=== PATIENT | male | born 1955 | race American Indian/Alaskan Native ===

== ENCOUNTER 2020-11-13 21:34 | Observation (INO) | payer MEDICARE, OTHER ==
[2020-11-13] MEDS ORDERED: ZIPRASIDONE MESYLATE 20 MG VIAL IM ONE (22:04)
--- NOTE | 2020-11-13 22:07 | Emergency Department Report ---
ED Altered Mental Status HPI - General Chief Complaint: Altered Mental Status Stated Complaint: AMS PUI?: No Time Seen by Provider: 11/13/20 21:56 Source: EMS Mode of arrival: Wheelchair Limitations: Altered Mental Status - History of Present Illness Initial Comments: Patient is a 65-year-old male who presents emergency room for altered mental status. Patient brought in by EMS. EMS states the patient is alert and oriented x1. EMS states possibility of EtOH. Patient is agitated. Patient oriented x1. EMS states the patient was wandering around and called 911 because he did not feel right. EMS found the patient wandering in a parking lot. MD Complaint: confusion, other (Agitation) -: Sudden Severity: severe Consistency of Symptoms: constant - Related Data Home Medications Medication Instructions Recorded Confirmed Last Taken Unobtainable 11/14/20 11/14/20 Unknown Allergies Allergy/AdvReac Type Severity Reaction Status Date / Time Unable to Assess Allergy Unverified 11/13/20 22:02 ED Review of Systems ROS: Stated complaint: AMS Other details as noted in HPI Comment: Unobtainable due to pts medical conditions ED Past Medical Hx - Past Medical History Previous Medical History?: No Additional medical history: unknown - Surgical History Past Surgical History?: No Additional Surgical History: unknown - Family History Family history: no significant - Social History Smoking Status: Unknown if ever smoked Substance Use Type: Alcohol - Medications Home Medications: Home Medications Medication Instructions Recorded Confirmed Last Taken Type Unobtainable 11/14/20 11/14/20 Unknown History ED Physical Exam - General Limitations: Altered Mental Status General appearance: alert, in no apparent distress - Head Head exam: Present: atraumatic, normocephalic - Eye Eye exam: Present: normal appearance, PERRL Pupils: Present: normal accommodation - ENT ENT exam: Present: mucous membranes moist - Neck Neck exam: Present: normal inspection - Respiratory Respiratory exam: Present: normal lung sounds bilaterally. Absent: respiratory distress, wheezes, rales - Cardiovascular Cardiovascular Exam: Present: regular rate, normal rhythm. Absent: systolic murmur, diastolic murmur, rubs, gallop - GI/Abdominal GI/Abdominal exam: Present: soft, normal bowel sounds. Absent: distended, tenderness, guarding - Rectal Rectal exam: Present: deferred, prostate tenderness, prostate enlargement - Extremities Exam Extremities exam: Present: normal inspection - Back Exam Back exam: Present: normal inspection - Neurological Exam Neurological exam: Present: alert, altered - Psychiatric Psychiatric exam: Present: agitated - Skin Skin exam: Present: warm, dry, intact, normal color. Absent: rash - Assessment Assessment Interval: Baseline - Level of Consciousness 1a. Level of Consciousness: alert/keenly responsive - LOC Questions 1b. LOC Questions: answers 1 question correctly - LOC Command 1c. LOC Commands: performs tasks correctly - Best Gaze 2. Best Gaze: normal - Visual 3. Visual: no visual loss - Facial Palsy 4. Facial Palsy: normal symmetrical movement - Motor Arm 5a. Motor Arm Left: no drift 5b. Motor Arm Right: no drift - Motor Leg 6a. Motor Leg Left: no drift 6b. Motor Leg Right: no drift - Limb Ataxia 7. Limb Ataxia: absent - Sensory 8. Sensory: normal - Best Language 9. Best Language: no aphasia - Dysarthria 10. Dysarthria: normal - Extinction and Inattention 11. Extinction/Inattention: no abnormality - Scoring Total Score: 1 Stroke Severity: Minor Stroke ED Course Vital Signs 11/13/20 11/13/20 11/13/20 22:06 22:11 22:15 Pulse Rate 89 90 Respiratory 18 15 10 L Rate Blood Pressure 128/68 O2 Sat by Pulse 68 L 96 Oximetry 11/13/20 11/13/20 11/13/20 22:30 22:45 23:00 Pulse Rate 108 H 108 H 96 H Respiratory 15 17 16 Rate Blood Pressure 124/75 134/66 119/57 O2 Sat by Pulse 97 93 96 Oximetry 11/13/20 11/13/20 11/13/20 23:15 23:30 23:45 Pulse Rate 90 96 H 93 H Respiratory 11 L 21 17 Rate Blood Pressure 138/80 144/91 154/85 O2 Sat by Pulse 98 98 Oximetry 11/14/20 11/14/20 11/14/20 00:09 00:15 00:31 Pulse Rate Respiratory Rate Blood Pressure 154/85 154/85 154/85 O2 Sat by Pulse 96 95 92 Oximetry 11/14/20 11/14/20 11/14/20 00:45 01:00 01:15 Pulse Rate 114 H 108 H 100 H Respiratory 14 15 17 Rate Blood Pressure 163/92 156/107 166/96 O2 Sat by Pulse 99 98 100 Oximetry 11/14/20 11/14/2011/14/21 01:30 01:45 02:00 Pulse Rate 118 H 102 H 109 H Respiratory 25 H 13 17 Rate Blood Pressure 170/91 170/86 158/90 O2 Sat by Pulse 88 100 98 Oximetry 11/14/20 11/14/20 11/14/20 02:15 02:31 02:45 Pulse Rate 97 H 102 H 102 H Respiratory 16 22 21 Rate Blood Pressure 162/92 152/95 171/119 O2 Sat by Pulse 100 97 Oximetry 11/14/20 11/14/20 11/14/20 03:00 03:15 03:30 Pulse Rate 91 H 91 H 100 H Respiratory 15 18 19 Rate Blood Pressure 161/85 148/78 160/91 O2 Sat by Pulse 99 95 97 Oximetry 11/14/20 11/14/20 11/14/20 03:45 04:00 04:15 Pulse Rate 98 H 92 H 92 H Respiratory 17 16 13 Rate Blood Pressure 151/84 150/80 153/90 O2 Sat by Pulse 98 99 98 Oximetry 11/14/20 04:30 Pulse Rate 90 Respiratory 15 Rate Blood Pressure 158/87 O2 Sat by Pulse 100 Oximetry - Reevaluation(s) Reevaluation #1: Patient became agitated. Patient given Geodon. 11/13/20 22:07 Reevaluation #2: Patient having restlessness and agitation still. Patient will be given Ativan. 11/13/20 23:07 Reevaluation #3: Patient resting comfortably. Patient will have CT scan done. 11/14/20 00:33 Reevaluation #4: I discussed all results with patient. I discussed plan of care with patient. Patient agrees with plan of care and admission. Patient to be admitted to the hospitalist service. 11/14/20 03:33 - Consultations Consultation #1: Hospitalist consulted for admission. Hospitalist to admit patient. 11/14/20 03:33 - Lab Data Result diagrams: 11/13/20 22:29 11/13/20 22:29 Lab Results 11/13/20 11/13/20 11/13/20 Range/Units 22:29 22:29 22:29 WBC 5.4 (4.5-11.0) K/mm3 RBC 3.23 L (3.65-5.03) M/mm3 Hgb 12.0 (11.8-15.2) gm/dl Hct 34.6 L (35.5-45.6) % MCV 107 H (84-94) fl MCH 37 H (28-32) pg MCHC 35 H (32-34) % RDW 14.4 (13.2-15.2) % Plt Count 77 L (140-440) K/mm3 Lymph % (Auto) Technical Support Analyst Add Manual Diff Complete Total Counted 100 Seg Neutrophils % Technical Support Analyst Seg Neuts % (Manual) 21.0 L (40.0-70.0) % Band Neutrophils % 3.0 % Lymphocytes % (Manual) 62.0 H (13.4-35.0) % Reactive Lymphs % (Man) 1.0 % Monocytes % (Manual) 12.0 H (0.0-7.3) % Basophils % (Manual) 1.0 (0.0-1.8) % Nucleated RBC % Not Reportable Seg Neutrophils # Man 1.1 L (1.8-7.7) K/mm3 Band Neutrophils # 0.2 K/mm3 Lymphocytes # (Manual) 3.3 (1.2-5.4) K/mm3 Abs React Lymphs (Man) 0.1 K/mm3 Monocytes # (Manual) 0.6 (0.0-0.8) K/mm3 Eosinophils # (Manual) 0.0 (0.0-0.4) K/mm3 Basophils # (Manual) 0.1 (0.0-0.1) K/mm3 Metamyelocytes # 0.0 K/mm3 Myelocytes # 0.0 K/mm3 Promyelocytes # 0.0 K/mm3 Blast Cells # 0.0 K/mm3 WBC Morphology Not Reportable Hypersegmented Neuts Not Reportable Hyposegmented Neuts Not Reportable Hypogranular Neuts Not Reportable Smudge Cells Not Reportable Toxic Granulation Not Reportable Toxic Vacuolation Not Reportable Dohle Bodies Not Reportable Pelger-Huet Anomaly Not Reportable Jay Rods Not Reportable Platelet Estimate Consistent w auto Clumped Platelets Not Reportable Plt Clumps, EDTA Not Reportable Large Platelets Not Reportable Giant Platelets Not Reportable Platelet Satelliting Not Reportable Plt Morphology Comment Not Reportable RBC Morphology Not Reportable Dimorphic RBCs Not Reportable Polychromasia Not Reportable Hypochromasia Not Reportable Poikilocytosis Not Reportable Anisocytosis 1+ Microcytosis Not Reportable Macrocytosis 1+ Spherocytes Not Reportable Pappenheimer Bodies Not Reportable Sickle Cells Not Reportable Target Cells Not Reportable Tear Drop Cells Not Reportable Ovalocytes Not Reportable Helmet Cells Not Reportable [place] Bodies Not Reportable [place] Rings Not Reportable Jordi Cells Not Reportable Bite Cells Not Reportable Crenated Cell Not Reportable Elliptocytes Not Reportable Acanthocytes (Spur) Not Reportable Rouleaux Not Reportable Hemoglobin C Crystals Not Reportable Schistocytes Not Reportable Malaria parasites Not Reportable Evangelista Bodies Not Reportable Hem Pathologist Commnt No Sodium 141 (137-145) mmol/L Potassium 3.9 (3.6-5.0) mmol/L Chloride 103.9 (98-107) mmol/L Carbon Dioxide 24 (22-30) mmol/L Anion Gap 17 mmol/L BUN 6 L (9-20) mg/dL Creatinine 0.7 L (0.8-1.3) mg/dL Estimated GFR > 60 ml/min BUN/Creatinine Ratio 9 % Glucose 107 H (75-100) mg/dL Lactic Acid 2.40 H* (0.7-2.0) mmol/L Calcium 8.5 (8.4-10.2) mg/dL Total Bilirubin 1.80 H (0.1-1.2) mg/dL AST 82 H (5-40) units/L ALT 25 (7-56) units/L Alkaline Phosphatase 180 H (35-129) units/L Ammonia (25-60) umol/L Total Creatine Kinase (55-170) units/L Troponin T (0.00-0.029) ng/mL Total Protein 7.3 (6.3-8.2) g/dL Albumin 3.6 L (3.9-5) g/dL Albumin/Globulin Ratio 1.0 % Urine Color (Yellow) Urine Turbidity (Clear) Urine pH (5.0-7.0) Ur Specific [place] (1.003-1.030) Urine Protein (Negative) mg/dL Urine Glucose (UA) (Negative) mg/dL Urine Ketones (Negative) mg/dL Urine Blood (Negative) Urine Nitrite (Negative) Urine Bilirubin (Negative) Urine Urobilinogen (<2.0) mg/dL Ur Leukocyte Esterase (Negative) Urine WBC (Auto) (0.0-6.0) /HPF Urine RBC (Auto) (0.0-6.0) /HPF Salicylates (2.8-20.0) mg/dL Urine Opiates Screen Urine Methadone Screen Acetaminophen (10.0-30.0) ug/mL Ur Barbiturates Screen Ur Phencyclidine Scrn Ur Amphetamines Screen U Benzodiazepines Scrn Urine Cocaine Screen U Marijuana (THC) Screen Drugs of Abuse Note Plasma/Serum Alcohol (0-0.07) % 11/13/20 11/13/20 11/13/20 Range/Units 22:29 22:29 22:29 WBC (4.5-11.0) K/mm3 RBC (3.65-5.03) M/mm3 Hgb (11.8-15.2) gm/dl Hct (35.5-45.6) % MCV (84-94) fl MCH (28-32) pg MCHC (32-34) % RDW (13.2-15.2) % Plt Count (140-440) K/mm3 Lymph % (Auto) Add Manual Diff Total Counted Seg Neutrophils % Seg Neuts % (Manual) (40.0-70.0) % Band Neutrophils % % Lymphocytes % (Manual) (13.4-35.0) % Reactive Lymphs % (Man) % Monocytes % (Manual) (0.0-7.3) % Basophils % (Manual) (0.0-1.8) % Nucleated RBC % Seg Neutrophils # Man (1.8-7.7) K/mm3 Band Neutrophils # K/mm3 Lymphocytes # (Manual) (1.2-5.4) K/mm3 Abs React Lymphs (Man) K/mm3 Monocytes # (Manual) (0.0-0.8) K/mm3 Eosinophils # (Manual) (0.0-0.4) K/mm3 Basophils # (Manual) (0.0-0.1) K/mm3 Metamyelocytes # K/mm3 Myelocytes # K/mm3 Promyelocytes # K/mm3 Blast Cells # K/mm3 WBC Morphology Hypersegmented Neuts Hyposegmented Neuts Hypogranular Neuts Smudge Cells Toxic Granulation Toxic Vacuolation Dohle Bodies Pelger-Huet Anomaly Jay Rods Platelet Estimate Clumped Platelets Plt Clumps, EDTA Large Platelets Giant Platelets Platelet Satelliting Plt Morphology Comment RBC Morphology Dimorphic RBCs Polychromasia Hypochromasia Poikilocytosis Anisocytosis Microcytosis Macrocytosis Spherocytes Pappenheimer Bodies Sickle Cells Target Cells Tear Drop Cells Ovalocytes Helmet Cells [place] Bodies [place] Rings Jordi Cells Bite Cells Crenated Cell Elliptocytes Acanthocytes (Spur) Rouleaux Hemoglobin C Crystals Schistocytes Malaria parasites Evangelista Bodies Hem Pathologist Commnt Sodium (137-145) mmol/L Potassium (3.6-5.0) mmol/L Chloride (98-107) mmol/L Carbon Dioxide (22-30) mmol/L Anion Gap mmol/L BUN (9-20) mg/dL Creatinine (0.8-1.3) mg/dL Estimated GFR ml/min BUN/Creatinine Ratio % Glucose (75-100) mg/dL Lactic Acid (0.7-2.0) mmol/L Calcium (8.4-10.2) mg/dL Total Bilirubin (0.1-1.2) mg/dL AST (5-40) units/L ALT (7-56) units/L Alkaline Phosphatase (35-129) units/L Ammonia 36.0 (25-60) umol/L Total Creatine Kinase 147 (55-170) units/L Troponin T (0.00-0.029) ng/mL Total Protein (6.3-8.2) g/dL Albumin (3.9-5) g/dL Albumin/Globulin Ratio % Urine Color (Yellow) Urine Turbidity (Clear) Urine pH (5.0-7.0) Ur Specific [place] (1.003-1.030) Urine Protein (Negative) mg/dL Urine Glucose (UA) (Negative) mg/dL Urine Ketones (Negative) mg/dL Urine Blood (Negative) Urine Nitrite (Negative) Urine Bilirubin (Negative) Urine Urobilinogen (<2.0) mg/dL Ur Leukocyte Esterase (Negative) Urine WBC (Auto) (0.0-6.0) /HPF Urine RBC (Auto) (0.0-6.0) /HPF Salicylates < 0.3 L (2.8-20.0) mg/dL Urine Opiates Screen Urine Methadone Screen Acetaminophen (10.0-30.0) ug/mL Ur Barbiturates Screen Ur Phencyclidine Scrn Ur Amphetamines Screen U Benzodiazepines Scrn Urine Cocaine Screen U Marijuana (THC) Screen Drugs of Abuse Note Plasma/Serum Alcohol (0-0.07) % 11/13/20 11/13/20 11/13/20 Range/Units 22:29 22:29 22:29 WBC (4.5-11.0) K/mm3 RBC (3.65-5.03) M/mm3 Hgb (11.8-15.2) gm/dl Hct (35.5-45.6) % MCV (84-94) fl MCH (28-32) pg MCHC (32-34) % RDW (13.2-15.2) % Plt Count (140-440) K/mm3 Lymph % (Auto) Add Manual Diff Total Counted Seg Neutrophils % Seg Neuts % (Manual) (40.0-70.0) % Band Neutrophils % % Lymphocytes % (Manual) (13.4-35.0) % Reactive Lymphs % (Man) % Monocytes % (Manual) (0.0-7.3) % Basophils % (Manual) (0.0-1.8) % Nucleated RBC % Seg Neutrophils # Man (1.8-7.7) K/mm3 Band Neutrophils # K/mm3 Lymphocytes # (Manual) (1.2-5.4) K/mm3 Abs React Lymphs (Man) K/mm3 Monocytes # (Manual) (0.0-0.8) K/mm3 Eosinophils # (Manual) (0.0-0.4) K/mm3 Basophils # (Manual) (0.0-0.1) K/mm3 Metamyelocytes # K/mm3 Myelocytes # K/mm3 Promyelocytes # K/mm3 Blast Cells # K/mm3 WBC Morphology Hypersegmented Neuts Hyposegmented Neuts Hypogranular Neuts Smudge Cells Toxic Granulation Toxic Vacuolation Dohle Bodies Pelger-Huet Anomaly Jay Rods Platelet Estimate Clumped Platelets Plt Clumps, EDTA Large Platelets Giant Platelets Platelet Satelliting Plt Morphology Comment RBC Morphology Dimorphic RBCs Polychromasia Hypochromasia Poikilocytosis Anisocytosis Microcytosis Macrocytosis Spherocytes Pappenheimer Bodies Sickle Cells Target Cells Tear Drop Cells Ovalocytes Helmet Cells [place] Bodies [place] Rings Jordi Cells Bite Cells Crenated Cell Elliptocytes Acanthocytes (Spur) Rouleaux Hemoglobin C Crystals Schistocytes Malaria parasites Evangelista Bodies Hem Pathologist Commnt Sodium (137-145) mmol/L Potassium (3.6-5.0) mmol/L Chloride (98-107) mmol/L Carbon Dioxide (22-30) mmol/L Anion Gap mmol/L BUN (9-20) mg/dL Creatinine (0.8-1.3) mg/dL Estimated GFR ml/min BUN/Creatinine Ratio % Glucose (75-100) mg/dL Lactic Acid (0.7-2.0) mmol/L Calcium (8.4-10.2) mg/dL Total Bilirubin (0.1-1.2) mg/dL AST (5-40) units/L ALT (7-56) units/L Alkaline Phosphatase (35-129) units/L Ammonia (25-60) umol/L Total Creatine Kinase (55-170) units/L Troponin T < 0.010 (0.00-0.029) ng/mL Total Protein (6.3-8.2) g/dL Albumin (3.9-5) g/dL Albumin/Globulin Ratio % Urine Color (Yellow) Urine Turbidity (Clear) Urine pH (5.0-7.0) Ur Specific [place] (1.003-1.030) Urine Protein (Negative) mg/dL Urine Glucose (UA) (Negative) mg/dL Urine Ketones (Negative) mg/dL Urine Blood (Negative) Urine Nitrite (Negative) Urine Bilirubin (Negative) Urine Urobilinogen (<2.0) mg/dL Ur Leukocyte Esterase (Negative) Urine WBC (Auto) (0.0-6.0) /HPF Urine RBC (Auto) (0.0-6.0) /HPF Salicylates (2.8-20.0) mg/dL Urine Opiates Screen Urine Methadone Screen Acetaminophen 5.0 L (10.0-30.0) ug/mL Ur Barbiturates Screen Ur Phencyclidine Scrn Ur Amphetamines Screen U Benzodiazepines Scrn Urine Cocaine Screen U Marijuana (THC) Screen Drugs of Abuse Note Plasma/Serum Alcohol 0.30 H (0-0.07) % 11/14/20 11/14/20 11/14/20 Range/Units 00:24 01:30 02:48 WBC (4.5-11.0) K/mm3 RBC (3.65-5.03) M/mm3 Hgb (11.8-15.2) gm/dl Hct (35.5-45.6) % MCV (84-94) fl MCH (28-32) pg MCHC (32-34) % RDW (13.2-15.2) % Plt Count (140-440) K/mm3 Lymph % (Auto) Add Manual Diff Total Counted Seg Neutrophils % Seg Neuts % (Manual) (40.0-70.0) % Band Neutrophils % % Lymphocytes % (Manual) (13.4-35.0) % Reactive Lymphs % (Man) % Monocytes % (Manual) (0.0-7.3) % Basophils % (Manual) (0.0-1.8) % Nucleated RBC % Seg Neutrophils # Man (1.8-7.7) K/mm3 Band Neutrophils # K/mm3 Lymphocytes # (Manual) (1.2-5.4) K/mm3 Abs React Lymphs (Man) K/mm3 Monocytes # (Manual) (0.0-0.8) K/mm3 Eosinophils # (Manual) (0.0-0.4) K/mm3 Basophils # (Manual) (0.0-0.1) K/mm3 Metamyelocytes # K/mm3 Myelocytes # K/mm3 Promyelocytes # K/mm3 Blast Cells # K/mm3 WBC Morphology Hypersegmented Neuts Hyposegmented Neuts Hypogranular Neuts Smudge Cells Toxic Granulation Toxic Vacuolation Dohle Bodies Pelger-Huet Anomaly Jay Rods Platelet Estimate Clumped Platelets Plt Clumps, EDTA Large Platelets Giant Platelets Platelet Satelliting Plt Morphology Comment RBC Morphology Dimorphic RBCs Polychromasia Hypochromasia Poikilocytosis Anisocytosis Microcytosis Macrocytosis Spherocytes Pappenheimer Bodies Sickle Cells Target Cells Tear Drop Cells Ovalocytes Helmet Cells [place] Bodies [place] Rings Jordi Cells Bite Cells Crenated Cell Elliptocytes Acanthocytes (Spur) Rouleaux Hemoglobin C Crystals Schistocytes Malaria parasites Evangelista Bodies Hem Pathologist Commnt Sodium (137-145) mmol/L Potassium (3.6-5.0) mmol/L Chloride (98-107) mmol/L Carbon Dioxide (22-30) mmol/L Anion Gap mmol/L BUN (9-20) mg/dL Creatinine (0.8-1.3) mg/dL Estimated GFR ml/min BUN/Creatinine Ratio % Glucose (75-100) mg/dL Lactic Acid 2.40 H* 2.10 H* (0.7-2.0) mmol/L Calcium (8.4-10.2) mg/dL Total Bilirubin (0.1-1.2) mg/dL AST (5-40) units/L ALT (7-56) units/L Alkaline Phosphatase (35-129) units/L Ammonia (25-60) umol/L Total Creatine Kinase (55-170) units/L Troponin T (0.00-0.029) ng/mL Total Protein (6.3-8.2) g/dL Albumin (3.9-5) g/dL Albumin/Globulin Ratio % Urine Color Straw (Yellow) Urine Turbidity Clear (Clear) Urine pH 7.0 (5.0-7.0) Ur Specific [place] 1.002 L (1.003-1.030) Urine Protein <15 mg/dl (Negative) mg/dL Urine Glucose (UA) Neg (Negative) mg/dL Urine Ketones Neg (Negative) mg/dL Urine Blood Lg (Negative) Urine Nitrite Neg (Negative) Urine Bilirubin Neg (Negative) Urine Urobilinogen < 2.0 (<2.0) mg/dL Ur Leukocyte Esterase Sm (Negative) Urine WBC (Auto) 1.0 (0.0-6.0) /HPF Urine RBC (Auto) 2.0 (0.0-6.0) /HPF Salicylates (2.8-20.0) mg/dL Urine Opiates Screen Urine Methadone Screen Acetaminophen (10.0-30.0) ug/mL Ur Barbiturates Screen Ur Phencyclidine Scrn Ur Amphetamines Screen U Benzodiazepines Scrn Urine Cocaine Screen U Marijuana (THC) Screen Drugs of Abuse Note Plasma/Serum Alcohol (0-0.07) % 11/14/20 Range/Units 02:48 WBC (4.5-11.0) K/mm3 RBC (3.65-5.03) M/mm3 Hgb (11.8-15.2) gm/dl Hct (35.5-45.6) % MCV (84-94) fl MCH (28-32) pg MCHC (32-34) % RDW (13.2-15.2) % Plt Count (140-440) K/mm3 Lymph % (Auto) Add Manual Diff Total Counted Seg Neutrophils % Seg Neuts % (Manual) (40.0-70.0) % Band Neutrophils % % Lymphocytes % (Manual) (13.4-35.0) % Reactive Lymphs % (Man) % Monocytes % (Manual) (0.0-7.3) % Basophils % (Manual) (0.0-1.8) % Nucleated RBC % Seg Neutrophils # Man (1.8-7.7) K/mm3 Band Neutrophils # K/mm3 Lymphocytes # (Manual) (1.2-5.4) K/mm3 Abs React Lymphs (Man) K/mm3 Monocytes # (Manual) (0.0-0.8) K/mm3 Eosinophils # (Manual) (0.0-0.4) K/mm3 Basophils # (Manual) (0.0-0.1) K/mm3 Metamyelocytes # K/mm3 Myelocytes # K/mm3 Promyelocytes # K/mm3 Blast Cells # K/mm3 WBC Morphology Hypersegmented Neuts Hyposegmented Neuts Hypogranular Neuts Smudge Cells Toxic Granulation Toxic Vacuolation Dohle Bodies Pelger-Huet Anomaly Jay Rods Platelet Estimate Clumped Platelets Plt Clumps, EDTA Large Platelets Giant Platelets Platelet Satelliting Plt Morphology Comment RBC Morphology Dimorphic RBCs Polychromasia Hypochromasia Poikilocytosis Anisocytosis Microcytosis Macrocytosis Spherocytes Pappenheimer Bodies Sickle Cells Target Cells Tear Drop Cells Ovalocytes Helmet Cells [place] Bodies [place] Rings [employer] Cells Bite Cells Crenated Cell Elliptocytes Acanthocytes (Spur) Rouleaux Hemoglobin C Crystals Schistocytes Malaria parasites Evangelista Bodies Hem Pathologist Commnt Sodium (137-145) mmol/L Potassium (3.6-5.0) mmol/L Chloride (98-107) mmol/L Carbon Dioxide (22-30) mmol/L Anion Gap mmol/L BUN (9-20) mg/dL Creatinine (0.8-1.3) mg/dL Estimated GFR ml/min BUN/Creatinine Ratio % Glucose (75-100) mg/dL Lactic Acid (0.7-2.0) mmol/L Calcium (8.4-10.2) mg/dL Total Bilirubin (0.1-1.2) mg/dL AST (5-40) units/L ALT (7-56) units/L Alkaline Phosphatase (35-129) units/L Ammonia (25-60) umol/L Total Creatine Kinase (55-170) units/L Troponin T (0.00-0.029) ng/mL Total Protein (6.3-8.2) g/dL Albumin (3.9-5) g/dL Albumin/Globulin Ratio % Urine Color (Yellow) Urine Turbidity (Clear) Urine pH (5.0-7.0) Ur Specific [place] (1.003-1.030) Urine Protein (Negative) mg/dL Urine Glucose (UA) (Negative) mg/dL Urine Ketones (Negative) mg/dL Urine Blood (Negative) Urine Nitrite (Negative) Urine Bilirubin (Negative) Urine Urobilinogen (<2.0) mg/dL Ur Leukocyte Esterase (Negative) Urine WBC (Auto) (0.0-6.0) /HPF Urine RBC (Auto) (0.0-6.0) /HPF Salicylates (2.8-20.0) mg/dL Urine Opiates Screen Presumptive negative Urine Methadone Screen Presumptive negative Acetaminophen (10.0-30.0) ug/mL Ur Barbiturates Screen Presumptive negative Ur Phencyclidine Scrn Presumptive negative Ur Amphetamines Screen Presumptive negative U Benzodiazepines Scrn Presumptive negative Urine Cocaine Screen Presumptive negative U Marijuana (THC) Screen Presumptive negative Drugs of Abuse Note Disclamer Plasma/Serum Alcohol (0-0.07) % - EKG Data -: EKG Interpreted by Mo EKG shows normal: sinus rhythm, axis, intervals, QRS complexes, ST-T waves Rate: normal - Radiology Data Radiology results: report reviewed CT head/brain wo con INDICATION: Altered Mental Status. TECHNIQUE: Routine CT head without contrast. All CT scans at this location are performed using CT dose reduction for ALARA by means of automated exposure control. COMPARISON: None. FINDINGS: BRAIN / INTRACRANIAL CONTENTS: No acute hemorrhage, mass effect, midline shift, or hydrocephalus. No appreciable acute large territorial or lacunar infarct. Mild parenchymal volume loss which appears more than expected for patient's age. ORBITS: No significant abnormality of visualized orbits. SINUSES / MASTOIDS: No significant abnormality of visualized sinuses and mastoid air cells. ADDITIONAL FINDINGS: None. IMPRESSION: 1. No acute intracranial abnormality on noncontrast CT of the brain. 2. Mild parenchymal atrophy. - Medical Decision Making Patient is a 65-year-old male was brought in by EMS for altered mental status. Patient was found wandering in a parking lot. Patient was agitated upon arrival. Patient given Geodon and Ativan and the patient calmed down. Patient required Ativan and Geodon in order to get a clear head CT. Patient's head CT was negative for acute findings. Patient had labs done which were essentially unremarkable except for elevated lactic acid, elevated alcohol, UA positive for UTI. On exam patient was found to have a tender and boggy prostate. Patient treated with IV antibiotics. Earlier in the ER stay, the patient was given a banana bag and IV fluids. Patient admitted to the hospital service for further evaluation treatment. Critical care time documented due to the multiple reassessments, prolonged time at the bedside, interpretation of diagnostics and labs. - Differential Diagnosis Altered mental status, UTI, infection, prostate infection, acute intoxicati Critical Care Time: Yes Critical care time in (mins) excluding proc time.: 35 Critical care attestation.: If time is entered above; I have spent that time in minutes in the direct care of this critically ill patient, excluding procedure time. Critical Care Time: 35 minutes ED Disposition Clinical Impression: Acute prostatitis, Lactic acid acidosis, Agitation Altered mental state Qualifiers: Altered mental status type: unspecified Qualified Code(s): R41.82 - Altered mental status, unspecified UTI (urinary tract infection) Qualifiers: Urinary tract infection type: acute cystitis Hematuria presence: with hematuria Qualified Code(s): N30.01 - Acute cystitis with hematuria Acute alcohol intoxication Qualifiers: Complication of substance-induced condition: uncomplicated Qualified Code(s): F10.920 - Alcohol use, unspecified with intoxication, uncomplicated Disposition: 09 OP ADMIT IP TO THIS HOSP Is pt being admited?: Yes Does the pt Need Aspirin: No Condition: Critical Time of Disposition: 03:42
[2020-11-13 22:48] LABS: Hematocrit 34.6 % (35.5-45.6); Mean Corpuscular HGB Conc 35 % (32-34); Mean Corpuscular Volume 107 fl (84-94); Red Blood Count 3.23 M/mm3 (3.65-5.03); Red Cell Distribution Width 14.4 % (13.2-15.2)
[2020-11-13 23:10] LABS: Alanine Aminotransferase 25 units/L (7-56); Albumin 3.6 g/dL (3.9-5); Blood Urea Nitrogen 6 mg/dL (9-20); Calcium 8.5 mg/dL (8.4-10.2); Hemolysis Index 66
[2020-11-13 23:11] LABS: Platelet Count 77 K/mm3 (140-440)
[2020-11-13 23:13] LABS: BUN/Creatinine Ratio 9
[2020-11-13] MEDS ORDERED: LORazepam 2 MG/ML VIAL IM ONE (23:23)
[2020-11-13] MEDS ORDERED: SODIUM CHLORIDE 0.9% 1000 ML 1,000 ML IV ONE (23:26)
[2020-11-14] MEDS ORDERED: THIAMINE 100 MG, FOLIC ACID 1 MG, MULTIPLE VITAMIN INJ, ADULT 10 ML in SODIUM CHLORIDE ... IV ONE (00:15)
--- NOTE | 2020-11-14 00:43 | Cat Scan Report ---
CT head/brain wo con INDICATION: Altered Mental Status. TECHNIQUE: Routine CT head without contrast. All CT scans at this location are performed using CT dos e reduction for ALARA by means of automated exposure control. COMPARISON: None. FINDINGS: BRAIN / INTRACRANIAL CONTENTS: No acute hemorrhage, mass effect, midline shift, or hydrocephalus. No appreciable acute large territorial or lacunar infarct. Mild parenchymal volume loss which appears mo re than expected for patient's age. ORBITS: No significant abnormality of visualized orbits. SINUSES / MASTOIDS: No significant abnormality of visualized sinuses and mastoid air cells. ADDITIONAL FINDINGS: None. IMPRESSION: 1. No acute intracranial abnormality on noncontrast CT of the brain. 2. Mild parenchymal atrophy. Signer Name: Miladis Downs MD Signed: 11/14/2020 12:39 AM Workstation Name: [id number]
[2020-11-14 03:21] LABS: Bilirubin,Urine NEG (Negative); Blood,Urine LG (Negative); Color,Urine Straw (Yellow); Protein,Urine <15 mg/dL mg/dL (Negative); Urobilinogen,Urine < 2.0 mg/dL (<2.0)
[2020-11-14 03:41] LABS: Amphetamine Screen,Urine PRESUMPTIVE NEGATIVE; Benzodiazepines Screen,Urine PRESUMPTIVE NEGATIVE; Cannabinoid Screen,Urine PRESUMPTIVE NEGATIVE; Cocaine Screen,Urine PRESUMPTIVE NEGATIVE; Methadone Screen,Urine PRESUMPTIVE NEGATIVE; Opiate Screen,Urine PRESUMPTIVE NEGATIVE
[2020-11-14] MEDS ORDERED: cefTRIAXone/NS 2 GM/100 ML 2 GM/100 ML BAG IV ONE ×2 (03:41→04:22)
--- NOTE | 2020-11-14 04:17 | History and Physical Report ---
History of Present Illness Date of examination: 11/14/20 Date of admission: 11/14/20 03:47 Chief complaint: AMS and agitation History of present illness: Patient is a 65-year-old male who presents emergency room for altered mental status. Patient brought in by EMS. EMS states the patient is alert and oriented x1. EMS states possibility of EtOH. Patient is agitated. Patient oriented x1. EMS states the patient was wandering around and called 911 because he did not feel right. EMS found the patient wandering in a parking lot. ED work-up WBC 5.4 hemoglobin 12.0, platelets 77, creatinine 0.7 lactic acid 2.4 and 2.10, total bilirubin 1.8, AST 82, ammonia 36, troponin less than 0.01, Albumin 3.6 serum alcohol level 0.30. CT of the head negative for acute finding. Patient seen in ED at bedside. Patient agitated and restless has a two-point bilateral restraint for safety. Reviewed lab, medical record and vital signs Past History Past Surgical History: No surgical history Social history: alcohol abuse Family history: no significant family history Medications and Allergies Allergies Allergy/AdvReac Type Severity Reaction Status Date / Time Unable to Assess Allergy Unverified 11/13/20 22:02 Home Medications Medication Instructions Recorded Confirmed Last Taken Type Unobtainable 11/14/20 11/14/20 Unknown History Active Meds: Active Medications Thiamine HCl 100 mg/ Folic Acid 1 mg/ Multivitamins/Minerals 10 ml/ Sodium Chloride 1,011.2 mls @ 250 mls/hr IV ONCE ONE Stop: 11/14/20 04:17 Last Admin: 11/14/20 01:13 Dose: 250 mls/hr Documented by: Levofloxacin/Dextrose (Levaquin 500mg/100ml) 500 mg in 100 mls @ 100 mls/hr IV ONCE ONE; Protocol Stop: 11/14/20 04:45 Review of Systems Constitutional: fatigue, weakness Ears, nose, mouth and throat: epistaxis, no bleeding gums Cardiovascular: no phlebitis Gastrointestinal: no melena Genitourinary Male: no polyuria Rectal: no itching Musculoskeletal: muscle weakness, muscle cramps Integumentary: no rash, no pruritis Psychiatric: anxiety, disorientation, confusion Endocrine: no proptosis Hematologic/Lymphatic: no easy bruising, no easy bleeding Allergic/Immunologic: no urticaria Exam - Constitutional Vitals: Temp Pulse Resp BP Pulse Ox 91 H 18 148/78 95 11/14/20 03:15 11/14/20 03:15 11/14/20 03:15 11/14/20 03:15 General appearance: Present: mild distress, other (frail appearing unkept patient) - EENT Eyes: Present: PERRL ENT: hearing intact, clear oral mucosa - Neck Neck: Present: supple, normal ROM - Respiratory Respiratory effort: normal Respiratory: bilateral: CTA - Cardiovascular Heart Sounds: Present: S1 & S2. Absent: rub, click - Extremities Extremities: pulses symmetrical, No edema Peripheral Pulses: within normal limits - Abdominal General gastrointestinal: Present: soft, non-tender, non-distended, normal bowel sounds Male genitourinary: Present: normal - Integumentary Integumentary: Present: clear, warm, dry - Musculoskeletal Musculoskeletal: gait normal, strength equal bilaterally - Psychiatric Psychiatric: appropriate mood/affect, intact judgment & insight - Neurologic Neurologic: CNII-XII intact, moves all extremities - Allied Health Allied health notes reviewed: nursing HEART Score - HEART Score Troponin: Troponin T < 0.010 ng/mL (0.00-0.029) 11/13/20 22:29 Results - Labs CBC & Chem 7: 11/13/20 22:29 11/13/20 22:29 Labs: Abnormal lab results 11/13/20 11/13/20 11/13/20 Range/Units 22:29 22:29 22:29 RBC 3.23 L (3.65-5.03) M/mm3 Hct 34.6 L (35.5-45.6) % MCV 107 H (84-94) fl MCH 37 H (28-32) pg MCHC 35 H (32-34) % Plt Count 77 L (140-440) K/mm3 BUN 6 L (9-20) mg/dL Creatinine 0.7 L (0.8-1.3) mg/dL Glucose 107 H (75-100) mg/dL Lactic Acid 2.40 H* (0.7-2.0) mmol/L Total Bilirubin 1.80 H (0.1-1.2) mg/dL AST 82 H (5-40) units/L Alkaline Phosphatase 180 H (35-129) units/L Albumin 3.6 L (3.9-5) g/dL Ur Specific [place] (1.003-1.030) Salicylates (2.8-20.0) mg/dL Acetaminophen (10.0-30.0) ug/mL Plasma/Serum Alcohol (0-0.07) % 11/13/20 11/13/20 11/13/20 Range/Units 22:29 22:29 22:29 RBC (3.65-5.03) M/mm3 Hct (35.5-45.6) % MCV (84-94) fl MCH (28-32) pg MCHC (32-34) % Plt Count (140-440) K/mm3 BUN (9-20) mg/dL Creatinine (0.8-1.3) mg/dL Glucose (75-100) mg/dL Lactic Acid (0.7-2.0) mmol/L Total Bilirubin (0.1-1.2) mg/dL AST (5-40) units/L Alkaline Phosphatase (35-129) units/L Albumin (3.9-5) g/dL Ur Specific [place] (1.003-1.030) Salicylates < 0.3 L (2.8-20.0) mg/dL Acetaminophen 5.0 L (10.0-30.0) ug/mL Plasma/Serum Alcohol 0.30 H (0-0.07) % 11/14/20 11/14/20 11/14/20 Range/Units 00:24 01:30 02:48 RBC (3.65-5.03) M/mm3 Hct (35.5-45.6) % MCV (84-94) fl MCH (28-32) pg MCHC (32-34) % Plt Count (140-440) K/mm3 BUN (9-20) mg/dL Creatinine (0.8-1.3) mg/dL Glucose (75-100) mg/dL Lactic Acid 2.40 H* 2.10 H* (0.7-2.0) mmol/L Total Bilirubin (0.1-1.2) mg/dL AST (5-40) units/L Alkaline Phosphatase (35-129) units/L Albumin (3.9-5) g/dL Ur Specific [place] 1.002 L (1.003-1.030) Salicylates (2.8-20.0) mg/dL Acetaminophen (10.0-30.0) ug/mL Plasma/Serum Alcohol (0-0.07) % Assessment and Plan - Patient Problems (1) Acute encephalopathy Current Visit: Yes Status: Acute Plan to address problem: Acute altered mental status likely secondary to alcohol use/UTI Safety and fall precaution at all time Continue bilateral restraint for safety and reorient patient. CT of the head negative for acute finding (2) Lactic acid acidosis Current Visit: Yes Status: Acute Plan to address problem: Trend lactic lactic level continue IV hydration Empiric antibiotic (3) UTI (urinary tract infection) Current Visit: Yes Status: Acute Qualifiers: Urinary tract infection type: acute cystitis Hematuria presence: with hematuria Qualified Code(s): N30.01 - Acute cystitis with hematuria Plan to address problem: Continue IV hydration and empiric antibiotic Urine and blood culture follow-up with results (4) Acute alcohol intoxication Current Visit: Yes Status: Acute Qualifiers: Complication of substance-induced condition: uncomplicated Qualified Code(s): F10.920 - Alcohol use, unspecified with intoxication, uncomplicated Plan to address problem: Start CIWA protocol with Ativan as needed Safety and fall: Precaution Seizure precaution (5) Thrombocytopenia Current Visit: Yes Status: Acute Plan to address problem: Possibly secondary to alcohol use Monitor platelet level We discussed alcohol use cessation and patient is mentally stable (6) DVT prophylaxis Current Visit: Yes Status: Acute Plan to address problem: scd-pt has low platelet
[2020-11-14] MEDS ORDERED: ONDANSETRON 4 MG/2 ML INJ IV PRN (04:34)
[2020-11-14] MEDS ORDERED: METOCLOPRAMIDE 10 MG/2 ML INJ IV PRN (04:34)
[2020-11-14] MEDS ORDERED: ACETAMINOPHEN 325 MG TAB PO PRN (04:34)
[2020-11-14] MEDS ORDERED: ALUM-MAG HYDROXIDE-SIMETHICONE 200-200-20MG/5ML ORAL LIQD 30 ML PO PRN (04:34)
[2020-11-14] MEDS ORDERED: MAGNESIUM HYDROXIDE (MOM) ORAL LIQD UDC PO PRN (04:34)
[2020-11-14] MEDS ORDERED: SENNOSIDES 8.6 MG TAB PO PRN (04:34)
[2020-11-14] MEDS ORDERED: HALOPERIDOL LACTATE 5 MG/1 ML INJ IV PRN (04:39)
[2020-11-14] MEDS ORDERED: LORazepam 2 MG/ML VIAL IV PRN (04:39)
[2020-11-14] MEDS ORDERED: 1: FOLIC ACID 1 MG, MULTIPLE VITAMIN INJ, ADULT 10 ML, THIAMINE 100 MG in SODIUM CHLORID IV SCH (05:00)
[2020-11-14 05:05] LABS: Band Neutrophils # (Manual) 0.2 K/mm3; Total Cells Counted 100
[2020-11-14 05:06] LABS: Anisocytosis 1+; Macrocytosis 1+; Platelet Estimate Consistent w Auto
[2020-11-14] MEDS: SODIUM CHLORIDE 0.9% 1000 ML 1,000 ML IV SCH (05:55)
[2020-11-14] MEDS ORDERED: traMADol 50 MG TAB PO PRN (06:05)
[2020-11-14] MEDS ORDERED: QUEtiapine 25 MG TAB PO PRN (06:05)
[2020-11-14] MEDS: FAMOTIDINE 20 MG/2 ML INJ IV SCH ×2 (09:50→21:33)
--- NOTE | 2020-11-14 10:43 | Consultation ---
History of Present Illness - Reason for Consult Consult date: 11/14/20 Reason for consult: MHE Requesting physician: NORA WARREN III - Chief Complaint Chief complaint: AMS and agitation - History of Present Psychiatric Illness Per ED Provider: Patient is a 65-year-old male who presents emergency room for altered mental status. Patient brought in by EMS. EMS states the patient is alert and oriented x1. EMS states possibility of EtOH. Patient is agitated. Patient oriented x1. EMS states the patient was wandering around and called 911 because he did not feel right. EMS found the patient wandering in a parking lot. PSYCH HPI Patient is a 65-year-old , disabled receiving Social Security - [place] male currently resides with his unable to recall his full address with no past psychiatric history of past medical history admitted to the hospital after being found wandering around. Per patient, he admits to having a couple of beers the other day stated that he does not have a mental disorder need there is a homeless and that he occasionally drinks but does not really abuse alcohol. Patient is alert and oriented to facility, knows the year at the time and also currently state and with the president is. Patient describes a good and stable mood, denies being depressed or excessively nervous. Patient eats and sleeps well. Patient denies panic attacks, recurrent nightmares or flashbacks. Patient denies symptoms suggestive of OCD or PTSD. Patient denies hallucinations, paranoia, thought interference and no features suggestive of hypomania or cherry. Patiently completely denies suicidal or homicidal thoughts. PAST PSYCHIATRIC HISTORY Diagnoses: None reported Suicide attempts or Self-harm behavior: None reported Prior psychiatric hospitalizations: None reported Substance Abuse history: Alcohol Previous psychiatric medications tried: None reported Outpatient treatment: None reported PAST MEDICAL HISTORY: None reported Family Psychiatric History: None reported or documented SOCIAL HISTORY Marital Status: Living Arrangements: With Employment Status: [facility] Access to guns/weapons:None reported Education: 2 years of college History of Abuse: No ne reported Legal History:None reported REVIEW OF SYSTEMS Constitutional: Negative for weight loss ENT: Negative for stridor Respiratory: Negative for cough or hemoptysis All other systems reviewed and are negative MENTAL STATUS EXAMINATION General Appearance and Behavior: Age appropriate, good hygiene, wearing lizandro ropriate clothes, good eye contact, cooperative polite with questioning. Cooperation: Participating/engaged Psychomotor Behavior: unremarkable and within normal limits Mood: Good Affect and affective range: congruent with mood Thought Process: Fluent/Logical, Thought Content: Within reality, Speech: Normal volume, Regular rate and rhythm, Intellectual Functioning: Average Suicidal Ideation: Denies SI Homicidal Ideation: Denies HI Impulse Control: Unimpaired Insight and Judgment: Normal insight and judgment, Memory: Normal, Attention: Normal, Orientation: Alert, oriented. Assessment and Plan - Psychiatric problem (1) Alcohol use disorder Current Visit: Yes Status: Acute. F10.10 Treatment Plan MEDICATIONS: Risks, benefits and alternatives of medications discussed with the patient, questions answered and consent obtained from patient. PSYCHOTHERAPY: Supportive psychotherapy provided MEDICAL: Per primary team DELIRIUM PRECAUTIONS: Please re-orient patient frequently, keep lights on during the day, and minimize benzodiazepines and opiates as these medications could worsen patient's confusion. 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 Case discussed with Dr. Cat who agrees with current disposition LEGAL STATUS: Voluntary. FOLLOW-UP: Will sign off Thank you for the consult. Please contact with any questions and/or concerns. Medications and Allergies Allergies Allergy/AdvReac Type Severity Reaction Status Date / Time Unable to Assess Allergy Unverified 11/13/20 22:02 Home Medications Medication Instructions Recorded Confirmed Last Taken Type Unobtainable 11/14/20 11/14/20 Unknown History Active Meds: Active Medications Acetaminophen (Acetaminophen 325 Mg Tab) 650 mg PO Q4H PRN PRN Reason: Pain MILD(1-3)/Fever >100.5/MCKEON Al Hydrox/Mg Hydrox/Simethicone (Alum-Mag Hydroxide-Simethicone [phone]/5ml Oral Liqd 30 Ml) 30 ml PO Q4H PRN PRN Reason: Indigestion Famotidine (Famotidine 20 Mg/2 Ml Inj) 20 mg IV BID GUEVARA Last Admin: 11/14/20 09:50 Dose: 20 mg Documented by: Haloperidol Lactate (Haloperidol Lactate 5 Mg/1 Ml Inj) 5 mg IV Q1H PRN PRN Reason: Unrespon. to mult. doses BZD's Levofloxacin/Dextrose (Levaquin 500mg/100ml) 500 mg in 100 mls @ 100 mls/hr IV Q24HR GUEVARA; Protocol Last Admin: 11/14/20 09:50 Dose: 100 mls/hr Documented by: Sodium Chloride (Nacl 0.9% 1000 Ml) 1,000 mls @ 125 mls/hr IV DIRECT [facility] Last Admin: 11/14/20 05:55 Dose: 125 mls/hr Documented by: Folic Acid 1 mg/ Thiamine HCl 100 mg/ Multivitamins/Minerals 10 ml/ Sodium Chloride 1,011.2 mls @ 125 mls/hr IV 2200 GUEVARA Lorazepam (Lorazepam 2 Mg/Ml Vial) 2 mg IV Q15MIN PRN PRN Reason: CIWA-Ar >25 Magnesium Hydroxide (Magnesium Hydroxide (Mom) Oral Liqd Udc) 30 ml PO Q4H PRN PRN Reason: Constipation Metoclopramide HCl (Metoclopramide 10 Mg/2 Ml Inj) 10 mg IV Q6H PRN PRN Reason: Nausea And Vomiting Ondansetron HCl (Ondansetron 4 Mg/2 Ml Inj) 4 mg IV Q8H PRN PRN Reason: Nausea And Vomiting Quetiapine Fumarate (Quetiapine 25 Mg Tab) 50 mg PO QHS PRN PRN Reason: Insomnia Senna (Sennosides 8.6 Mg Tab) 8.6 mg PO Q12HR PRN PRN Reason: Constipation Sodium Chloride (Sodium Chloride 0.9% 10 Ml Flush Syringe) 10 ml IV BID [facility] Last Admin: 11/14/20 09:50 Dose: 10 ml Documented by: Sodium Chloride (Sodium Chloride 0.9% 10 Ml Flush Syringe) 10 ml IV PRN PRN PRN Reason: LINE FLUSH Tramadol HCl (Tramadol 50 Mg Tab) 50 mg PO Q4H PRN PRN Reason: Pain, Moderate (4-6) Mental Status Exam - Vital signs Last Vital Signs Temp 97.8 F 11/14/20 05:50 Pulse 91 H 11/14/20 05:23 Resp 17 11/14/20 05:30 BP 156/82 11/14/20 05:23 Pulse Ox 98 11/14/20 05:30 Results Result Diagrams: 11/13/20 22:29 11/13/20 22:29 Abnormal lab results 11/13/20 11/13/20 11/13/20 Range/Units 22:29 22:29 22:29 RBC 3.23 L (3.65-5.03) M/mm3 Hct 34.6 L (35.5-45.6) % MCV 107 H (84-94) fl MCH 37 H (28-32) pg MCHC 35 H (32-34) % Plt Count 77 L (140-440) K/mm3 Seg Neuts % (Manual) 21.0 L (40.0-70.0) % Lymphocytes % (Manual) 62.0 H (13.4-35.0) % Monocytes % (Manual) 12.0 H (0.0-7.3) % Seg Neutrophils # Man 1.1 L (1.8-7.7) K/mm3 BUN 6 L (9-20) mg/dL Creatinine 0.7 L (0.8-1.3) mg/dL Glucose 107 H (75-100) mg/dL Lactic Acid 2.40 H* (0.7-2.0) mmol/L Phosphorus (2.5-4.5) mg/dL Magnesium (1.7-2.3) mg/dL Total Bilirubin 1.80 H (0.1-1.2) mg/dL AST 82 H (5-40) units/L Alkaline Phosphatase 180 H (35-129) units/L Albumin 3.6 L (3.9-5) g/dL Ur Specific [place] (1.003-1.030) Salicylates (2.8-20.0) mg/dL Acetaminophen (10.0-30.0) ug/mL Plasma/Serum Alcohol (0-0.07) % 11/13/20 11/13/20 11/13/20 Range/Units 22:29 22:29 22:29 RBC (3.65-5.03) M/mm3 Hct (35.5-45.6) % MCV (84-94) fl MCH (28-32) pg MCHC (32-34) % Plt Count (140-440) K/mm3 Seg Neuts % (Manual) (40.0-70.0) % Lymphocytes % (Manual) (13.4-35.0) % Monocytes % (Manual) (0.0-7.3) % Seg Neutrophils # Man (1.8-7.7) K/mm3 BUN (9-20) mg/dL Creatinine (0.8-1.3) mg/dL Glucose (75-100) mg/dL Lactic Acid (0.7-2.0) mmol/L Phosphorus (2.5-4.5) mg/dL Magnesium (1.7-2.3) mg/dL Total Bilirubin (0.1-1.2) mg/dL AST (5-40) units/L Alkaline Phosphatase (35-129) units/L Albumin (3.9-5) g/dL Ur Specific [place] (1.003-1.030) Salicylates < 0.3 L (2.8-20.0) mg/dL Acetaminophen 5.0 L (10.0-30.0) ug/mL Plasma/Serum Alcohol 0.30 H (0-0.07) % 11/14/20 11/14/20 11/14/20 Range/Units 00:24 01:30 02:48 RBC (3.65-5.03) M/mm3 Hct (35.5-45.6) % MCV (84-94) fl MCH (28-32) pg MCHC (32-34) % Plt Count (140-440) K/mm3 Seg Neuts % (Manual) (40.0-70.0) % Lymphocytes % (Manual) (13.4-35.0) % Monocytes % (Manual) (0.0-7.3) % Seg Neutrophils # Man (1.8-7.7) K/mm3 BUN (9-20) mg/dL Creatinine (0.8-1.3) mg/dL Glucose (75-100) mg/dL Lactic Acid 2.40 H* 2.10 H* (0.7-2.0) mmol/L Phosphorus (2.5-4.5) mg/dL Magnesium (1.7-2.3) mg/dL Total Bilirubin (0.1-1.2) mg/dL AST (5-40) units/L Alkaline Phosphatase (35-129) units/L Albumin (3.9-5) g/dL Ur Specific [place] 1.002 L (1.003-1.030) Salicylates (2.8-20.0) mg/dL Acetaminophen (10.0-30.0) ug/mL Plasma/Serum Alcohol (0-0.07) % 11/14/20 Range/Units 08:30 RBC (3.65-5.03) M/mm3 Hct (35.5-45.6) % MCV (84-94) fl MCH (28-32) pg MCHC (32-34) % Plt Count (140-440) K/mm3 Seg Neuts % (Manual) (40.0-70.0) % Lymphocytes % (Manual) (13.4-35.0) % Monocytes % (Manual) (0.0-7.3) % Seg Neutrophils # Man (1.8-7.7) K/mm3 BUN (9-20) mg/dL Creatinine (0.8-1.3) mg/dL Glucose (75-100) mg/dL Lactic Acid (0.7-2.0) mmol/L Phosphorus 2.40 L (2.5-4.5) mg/dL Magnesium 1.60 L (1.7-2.3) mg/dL Total Bilirubin (0.1-1.2) mg/dL AST (5-40) units/L Alkaline Phosphatase (35-129) units/L Albumin (3.9-5) g/dL Ur Specific [place] (1.003-1.030) Salicylates (2.8-20.0) mg/dL Acetaminophen (10.0-30.0) ug/mL Plasma/Serum Alcohol (0-0.07) % All other labs normal. Assessment and Plan - Psychiatric problem (1) Alcohol use disorder Current Visit: Yes Status: Acute
--- NOTE | 2020-11-14 16:19 | Event Note ---
Date: 11/14/20 Patient admitted for acute encephalopathy and UTI Continue IV antibiotics Continue IV normal saline Patient admitted early a.m. Chart reviewed and new orders placed
[2020-11-14] MEDS ORDERED: FOLIC ACID 1 MG, THIAMINE 100 MG, MULTIPLE VITAMIN INJ, ADULT 10 ML in SODIUM CHLORIDE ... IV SCH (22:00)
[2020-11-15] MEDS: SODIUM CHLORIDE 0.9% 1000 ML 1,000 ML IV SCH (06:58)
[2020-11-15] MEDS: FAMOTIDINE 20 MG/2 ML INJ IV SCH (09:05)
[2020-11-15 09:30] LABS: Eosinophils % (Auto) 1.2 % (0.0-4.3); Lymphocytes # (Auto) 2.2 K/mm3 (1.2-5.4); Lymphocytes % (Auto) 51.8 % (13.4-35.0); Mean Corpuscular HGB Conc 34 % (32-34); Mean Corpuscular Volume 108 fl (84-94); Monocytes # (Auto) 0.4 K/mm3 (0.0-0.8); Monocytes % (Auto) 8.7 % (0.0-7.3); Red Blood Count 3.24 M/mm3 (3.65-5.03); Red Cell Distribution Width 14.6 % (13.2-15.2)
[2020-11-15 09:36] LABS: Platelet Count 70 K/mm3 (140-440)
[2020-11-15 09:45] LABS: Blood Urea Nitrogen 4 mg/dL (9-20); Calcium 7.9 mg/dL (8.4-10.2); Hemolysis Index 10
[2020-11-15 09:50] LABS: BUN/Creatinine Ratio 7
[2020-11-15 11:27] VITALS: BP 118/65
--- NOTE | 2020-11-15 15:02 | Discharge Summary ---
Providers - Providers Date of Admission: 11/14/20 03:47 Date of discharge: 11/15/20 Attending physician: LLOYD STANLEY [facility] Condition: Critical Hospital course: Patient is a 65-year-old male who presents emergency room for altered mental status. Patient brought in by EMS. EMS states the patient is alert and oriented x1. EMS states possibility of EtOH. Patient is agitated. Patient oriented x1. EMS states the patient was wandering around and called 911 because he did not feel right. EMS found the patient wandering in a parking lot. ED work-up WBC 5.4 hemoglobin 12.0, platelets 77, creatinine 0.7 lactic acid 2.4 and 2.10, total bilirubin 1.8, AST 82, ammonia 36, troponin less than 0.01, Albumin 3.6 serum alcohol level 0.30. CT of the head negative for acute finding. Patient seen in ED at bedside. Patient agitated and restless has a two-point bilateral restraint for safety. Reviewed lab, medical record and vital signs Assessment and Plan - Patient Problems (1) Acute encephalopathy Current Visit: Yes Status: Acute Plan to address problem: Acute altered mental status likely secondary to alcohol use/UTI Safety and fall precaution at all time Continue bilateral restraint for safety and reorient patient. CT of the head negative for acute finding (2) Lactic acid acidosis Current Visit: Yes Status: Acute Plan to address problem: No leukocytes on the urine analysis (3) UTI (urinary tract infection) Current Visit: Yes Status: Acute Qualifiers: Urinary tract infection type: acute cystitis Hematuria presence: with hematuria Qualified Code(s): N30.01 - Acute cystitis with hematuria Plan to address problem: (4) Acute alcohol intoxication Current Visit: Yes Status: Acute Qualifiers: Complication of substance-induced condition: uncomplicated Qualified Code(s): F10.920 - Alcohol use, unspecified with intoxication, uncomplicated Plan to address problem: Stable alert and oriented No delirium or tremors (5) Thrombocytopenia Current Visit: Yes Status: Acute Plan to address problem: Improved Discharge him on Ativan 0.5 4 times daily as needed and also patient counseled about alcoholism. Patient states that he is not going to consume any more alcohol for some for many months Disposition: - TO HOME OR SELFCARE Final Discharge Diagnosis (Prints w/discharge instructions): Acute encephalopathy. Acute alcoholic intoxication. UTI. Dehydration. Hypokalemia Time spent for discharge: 45 minutes - Discharge Diagnoses (1) Acute alcohol intoxication Status: Acute Qualifiers: Complication of substance-induced condition: uncomplicated Qualified Code(s): F10.920 - Alcohol use, unspecified with intoxication, uncomplicated (2) Acute encephalopathy Status: Acute (3) Alcohol use disorder Status: Acute (4) DVT prophylaxis Status: Acute (5) Lactic acid acidosis Status: Acute Core Measure Documentation - Palliative Care Palliative Care/ Comfort Measures: Not Applicable - Core Measures Any of the following diagnoses?: none Exam - Constitutional Vitals: Temp Pulse Resp BP Pulse Ox 98.7 F 78 17 118/65 98 11/15/20 05:47 11/15/20 11:27 11/15/20 11:27 11/15/20 11:27 11/15/20 11:27 General appearance: Present: no acute distress, well-nourished - EENT Eyes: Present: PERRL ENT: hearing intact, clear oral mucosa - Neck Neck: Present: supple, normal ROM - Respiratory Respiratory effort: normal Respiratory: bilateral: CTA - Cardiovascular Heart rate: 78 Heart Sounds: Present: S1 & S2. Absent: rub, click - Extremities Extremities: no ischemia, pulses symmetrical, No edema Peripheral Pulses: within normal limits - Abdominal General gastrointestinal: Present: soft, non-tender, non-distended, normal bowel sounds Male genitourinary: Present: normal - Rectal Rectal Exam: deferred - Integumentary Integumentary: Present: clear, warm, dry - Musculoskeletal Musculoskeletal: gait normal, strength equal bilaterally - Psychiatric Psychiatric: appropriate mood/affect, intact judgment & insight - Neurologic Neurologic: CNII-XII intact, moves all extremities - Allied Health Allied health notes reviewed: nursing, case management Plan Activity: no restrictions Diet: regular Follow up with: ROSANA GARCIA MD [Primary Care Provider] - 7 Days
[2020-11-15] MEDS ORDERED: POTASSIUM CHLORIDE ER 20 MEQ TAB PO ONE (16:06)
--- NOTE | 2020-11-17 12:45 | Electrocardiograph Report ---
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
== END 2020-11-15 17:19 | disposition home or self-care (01) ==
LOC: ED 21:34 → 3A 11-14 03:47
PROVIDERS: ADMIT Internal Medicine Geriatric Medicine; ATTEND Internal Medicine
DX: N41.0 Acute prostatitis (principal); G93.40 Encephalopathy, unspecified; R41.82 Altered mental status, unspecified; E87.2 Acidosis; N30.01 Acute cystitis with hematuria; D69.6 Thrombocytopenia, unspecified; F10.129 Alcohol abuse with intoxication, unspecified
CPT/HCPCS: 36415; 70450; 80048; 80053; 80307; 81001; 82140; 82550; 83735; 84100; 84484; 85025; 93005; 96361; 96365; 96366; 96367; 96372; 96375; 96376; 99291; G0378; J0696; J1956; J2060; J3411; J3486; J7030; 80320; 85007; G0480